=== PATIENT | male | born 1970 | race Caucasian/White ===

== ENCOUNTER 2025-04-20 11:02 | Emergency (ER) | payer MEDICAID ==
[~2025-04-20] VITALS: Ht 162.6 cm; Wt 65.9 kg
[2025-04-20 11:15] VITALS: TEMP 97.9
[2025-04-20] MEDS: KETOROLAC TROMETHAMINE 30 MG/ML VIAL IM ONE (12:11)
[2025-04-20 15:25] VITALS: BP 141/77; PULSE 77; RESP 18; O2SAT 98
[2025-04-20] MEDS ORDERED: ACET-2247 PO (15:58)
[2025-04-20] MEDS ORDERED: IBUP-1492 PO (15:58)
== END 2025-04-20 16:38 | disposition home or self-care (01) ==
LOC: EMS 11:09
DX: M54.2 Cervicalgia (principal)
CPT/HCPCS: 99284; 72040; 72072; 96372; J1885